=== PATIENT | male | born 1965 | race Caucasian/White ===

== ENCOUNTER 2020-07-05 09:03 | Emergency (ER) | payer OTHER ==
[~2020-07-05] VITALS: Ht 172.7 cm; Wt 88.5 kg
[~2020-07-05 09:03] MED LIST: ASA5UEC; DIABETIC MED; FISHOIL; GLUCOPHAGE500 MG; LISINOPRIL20 MG; ZESTRIL; ZOCOR; ZOCOR 20 MG TAB20 M1
[2020-07-05] MEDS ORDERED: GABAPENTIN600 M1 PO (09:17)
[2020-07-05] MEDS ORDERED: NORCO 10-325 T1 EACH PO (09:17)
[2020-07-05] MEDS ORDERED: COZAAR 25 MG TA25 M1 PO (09:17)
[2020-07-05] MEDS ORDERED: LEVO-T100 MCG PO (09:18)
[2020-07-05] MEDS ORDERED: XANAX 0.5 MG0.5 MG PO (09:18)
[2020-07-05 09:23] LABS: ABSOLUTE EOSINOPHILS 0.1 thou/uL (0.0-0.7); ABSOLUTE LYMPHOCYTES 1.6 thou/uL (0.8-5.3); ABSOLUTE MONOCYTES 0.6 thou/uL (0.0-1.2); BASOPHILS 0.7 %; EOSINOPHILS 1.5 %; HEMATOCRIT 40.9 % (42.0-52.0); HEMOGLOBIN 14.1 gm/dL (14.0-18.0); LYMPHOCYTES 24.6 %; MCH 30.2 pg (26.0-34.0); MCHC 34.5 g/dL (28.0-37.0); MCV 87.7 fL (80.0-100.0); MONOCYTES 9.2 %; MPV 8.2 fl. (7.2-11.1); NUCLEATED RBCS 0 /100WBC; PLATELET COUNT* 226 thou/uL (150-400); RBC 4.67 mil/uL (4.50-6.00); RDW-CV 13.2 % (10.5-14.5); WBC 6.3 thou/uL (4.0-11.0)
[2020-07-05 09:36] LABS: APTT 24.8 Seconds (25.0-31.3); PROTIME 10.5 Seconds (9.20-11.50)
[2020-07-05 09:38] LABS: ANION GAP 6 mmol/L (7-16); BUN 7 mg/dL (7-18); CALCIUM 8.8 mg/dL (8.5-10.1); CHLORIDE 102 mmol/L (98-107); CO2 30 mmol/L (21-32); CREATININE 1.2 mg/dL (0.6-1.3); GLUCOSE 222 mg/dL (70-99); POTASSIUM 4.2 mmol/L (3.5-5.1); SODIUM 138 mmol/L (136-145)
[2020-07-05 09:43] LABS: ALBUMIN 3.7 g/dL (3.4-5.0); ALKALINE PHOSPHATASE 134 U/L (46-116); CHOLESTEROL 181 mg/dL (<200); HDL CHOLESTEROL 30 mg/dL (>40); SGOT 12 U/L (15-37); SGPT 38 U/L (30-65); TOTAL BILIRUBIN 0.6 mg/dL (<0.1-1.0); TOTAL PROTEIN 6.9 g/dL (6.4-8.2); TRIGLYCERIDE 420 mg/dL (<150); VLDL 84 mg/dL (<40)
[2020-07-05 09:45] LABS: LDL CHOLESTEROL ND mg/dL (<100); SERUM ASSESSMENT Clear
[2020-07-05 16:17] VITALS: BP 107/53
--- NOTE | 2020-07-05 16:42 | EKG ---
[place] [address] ELECTROCARDIOGRAM REPORT Name: LISSANICK Mclaughlin Room: [facility]#: [id number] Admission: 07/05/20 Attend Phys: Discharge: 07/05/20 Date of : 63 Date of Service: 07/05/20904 Report #: [id number] THIS REPORT FOR: //name// [facility] ED Test Date: 2020-07-05 Test Time: 09:05:54 Pat Name: NICK ALCARAZ Department: Room: Gender: Rn Observation: : 1965 Requested By: Lottie Kay Order Number: [id number] MD: Marcus Gallegos Measurements Intervals [place] Rate: 63 P: 54 MI: 123 QRS: 76 QRSD: 109 T: 11 QT: 391 QTc: 401 Interpretive Statements Sinus rhythm Probable left ventricular hypertrophy Compared to ECG 10/10/2010 08:01:23 No significant changes Electronically Signed On 07-05-2020 16:42:07 CDT by Marcus Gallegos [email or web address] <ELECTRONICALLY SIGNED> By: Marcus Gallegos MD, [facility] 07/05/20 1642 0905 09 Marcus Gallegos MD, [facility] /EPI
--- NOTE | 2020-07-06 15:33 | EXE ---
[place] [address] STRESS ECHOCARDIOGRAM Name: NICK ALCARAZ Room: [facility]#: [id number] Admission: 07/05/20 Attend Phys: Discharge: 07/05/20 Date of : 63 Date of Service: 07/05/20 1605 Report #: [id number] THIS REPORT FOR: cc: Darrell Xie MD, James H. MD Blick, David R. MD [facility] ~ APPROVED REPORT Study performed: 07/05/2020 11:57:09 Exam: Dobutamine Stress Echo Indication: Chest pain , Dyspnea , Dizziness, Hyperlipidemia, Hypertension Stress Nurse: Roxy Steen RN Supervising Physician: Macrus Gallegos MD Ht: 5 ft 8 in HR: 55 bpm BP: 139/85 mmHg Medical History Medications: Losartan Allergies: No known drug allergies Cardiac Risk Factors: HTN, Hyperlipidemia, DM, FHX of CAD Procedure The patient underwent a Pharmacological Stress Test using Dobutamine. Blood pressure, heart rate, and EKG were monitored. An Echocardiogram was performed by robotics technician in four stages in quad fashion. At peak stress, four selected images were obtained and placed side by side with resting images for comparison. Stress Test Details Stress Test: Pharmacological Stress Test using Dobutamine. Reason for pharmacologic stress test: physical limitation. HR Resting HR: 55 bpm Max Heart Rate (APMHR): 165 bpm Max HR Achieved: 158 bpm Target HR (85% APMHR): 140 bpm % of APMHR: 95 Recovery HR: 93 bpm HR response to stress: Normal [place] [address] STRESS ECHOCARDIOGRAM Name: NICK ALCARAZ Room: [facility]#: [id number] Admission: 07/05/20 Attend Phys: Discharge: 07/05/20 Date of : 63 Date of Service: 07/05/20 1605 Report #: [id number] Resting BP: 139/85 mmHg Max BP: 177/74 mmHg Recovery BP: 122/76 mmHg BP response to stress: Normal blood pressure response to stress. ECG Resting ECG: Sinus Rhythm Stress ECG: Sinus Rhythm, nonspecific ST-T abnormalities ST Change: Horizontal ST depression Maximum ST Deviation: 1 mm Arrhythmia: APC's Recovery ECG: Sinus Rhythm Recovery ST Change: Normal Recovery ST Deviation: 0 mm Recovery Arrhythmia: VPC Clinical Reason for Termination: Completed protocol Stress Symptoms: Chest pain Exercise duration: 12 min 49 sec Exercise capacity: 1.00 METs Pre-Stress Echo The resting Echocardiogram showed normal left ventricular contractility with an estimated Ejection Fraction of about 55-60%. Post-Stress Echo The stress Echocardiogram showed normal left ventricular contractility with an estimated Ejection Fraction of about 65-70%. Compared to rest, there were no stress-induced wall motion abnormalities. Conclusion Clinical Response: Equivocal Stress ECG Response: Ischemic Stress Echo Images: Non-ischemic low risk stress dobutamine echo for predicting future cardiac events Other Information Study Quality: [place] [address] STRESS ECHOCARDIOGRAM Name: NICK ALCARAZ [id number] Admission: 07/05/20 Attend Phys: Discharge: 07/05/20 Date of : 63 Date of Service: 07/05/20 1605 Report #: [id number] <Conclusion> low risk stress dobutamine echo for predicting future cardiac events <ELECTRONICALLY SIGNED> By: Marcus Gallegos MD, FACC 07/05/20 1605 04 04 Marcus Gallegos MD, FACC /INF
== END 2020-07-05 16:18 | disposition home or self-care (01) ==
LOC: M.ERS 09:03
PROVIDERS: Personal Emergency Response Attendant
DX: F41.9 Anxiety disorder, unspecified (principal); Z20.828 Contact with and (suspected) exposure to other viral communicable diseases; I10 Essential (primary) hypertension; E78.00 Pure hypercholesterolemia, unspecified; E11.9 Type 2 diabetes mellitus without complications